=== PATIENT | female | born 1940 | race Caucasian/White ===

== ENCOUNTER 2020-03-02 15:58 | Inpatient (IN) ==
[2020-03-02] MEDS ORDERED: Isovue-370 500 ML BOTTLE IVP ONE (16:45)
[2020-03-02] MEDS: Azithromycin 250 MG TABLET PO SCH (19:55)
[2020-03-03] MEDS: Levothyroxine 25 MCG TABLET PO SCH (05:14)
[2020-03-03] MEDS: *HR* Enoxaparin 40 MG/0.4 ML SYRINGE SQ SCH (05:15)
[2020-03-03 05:25] LABS: Basophils % 0.1 %; Eosinophils % 0.1 %; Hematocrit 35.8 % (35.3-44.9); Hemoglobin 11.2 g/dL (11.5-15.4); Lymphocytes % 11.1 %; Mean Corpuscular HGB Conc 31.3 g/dL (31.6-35.5); Mean Corpuscular Hemoglobin 29.8 pg (28.0-33.3); Mean Corpuscular Volume 95.2 fL (83.0-100.0); Monocytes # 0.8 K/mcL (0.0-1.3); Monocytes % 8.5 %; Neutrophils # 7.4 K/mcL (1.6-8.9); Platelet Count 233 K/mcL (140-400); Red Blood Count 3.76 M/mcL (3.82-4.97); Red Cell Distribution Width 14.7 % (11.5-14.5); Segmented Neutrophils % 79.2 %; White Blood Count 9.4 K/mcL (4.3-11.1)
[2020-03-03 05:38] LABS: Albumin/Globulin Ratio 0.9 (1.1-2.2); Bilirubin,Total 0.2 mg/dL (0.3-1.0); Calcium 8.6 mg/dL (8.6-10.3); Globulin 3.2 g/dL (2.4-3.5); Magnesium 2.1 mg/dL (1.6-2.6); Potassium 4.1 mEq/L (3.5-5.1); Total Protein 6.2 g/dL (6.4-8.9)
[2020-03-03] MEDS: dexAMETHasone 4 MG TABLET PO SCH (08:19)
[2020-03-03] MEDS: Aspirin Enteric Coated 81 MG Tablet PO SCH (08:19)
[2020-03-03] MEDS: allopurinoL 100 MG TABLET PO SCH (08:19)
[2020-03-03] MEDS: Azithromycin 250 MG TABLET PO SCH (08:19)
[2020-03-03] MEDS: Spironolactone 25 MG TABLET PO SCH (08:19)
[2020-03-03] MEDS: Furosemide 20 MG TABLET PO SCH (08:20)
[2020-03-04] MEDS: *HR* Enoxaparin 40 MG/0.4 ML SYRINGE SQ SCH (05:10)
[2020-03-04] MEDS: Levothyroxine 25 MCG TABLET PO SCH (05:11)
[2020-03-04 06:01] LABS: Hematocrit 39.8 % (35.3-44.9); Hemoglobin 12.3 g/dL (11.5-15.4); Mean Corpuscular HGB Conc 30.9 g/dL (31.6-35.5); Mean Corpuscular Hemoglobin 29.7 pg (28.0-33.3); Mean Corpuscular Volume 96.1 fL (83.0-100.0); Mean Platelet Volume 9.9 fL (9.4-12.4); Platelet Count 216 K/mcL (140-400); Red Blood Count 4.14 M/mcL (3.82-4.97); Red Cell Distribution Width 14.8 % (11.5-14.5); White Blood Count 11.2 K/mcL (4.3-11.1)
[2020-03-04 06:21] LABS: Albumin/Globulin Ratio 0.9 (1.1-2.2); Bilirubin,Total 0.2 mg/dL (0.3-1.0); Calcium 8.6 mg/dL (8.6-10.3); Globulin 3.3 g/dL (2.4-3.5); Total Protein 6.3 g/dL (6.4-8.9)
[2020-03-04] MEDS: Spironolactone 25 MG TABLET PO SCH (09:28)
[2020-03-04] MEDS: Azithromycin 250 MG TABLET PO SCH (09:28)
[2020-03-04] MEDS: Aspirin Enteric Coated 81 MG Tablet PO SCH (09:28)
[2020-03-04] MEDS: allopurinoL 100 MG TABLET PO SCH (09:28)
[2020-03-04] MEDS: Furosemide 20 MG TABLET PO SCH (09:28)
[2020-03-04] MEDS: dexAMETHasone 4 MG TABLET PO SCH (09:28)
[2020-03-04 10:01] LABS: Prealbumin 10.6 mg/dL (17.0-34.0)
[2020-03-04 10:09] LABS: Procalcitonin 0.1 ng/mL (0.00-0.15)
[2020-03-05] MEDS: *HR* Enoxaparin 40 MG/0.4 ML SYRINGE SQ SCH (05:18)
[2020-03-05] MEDS: Levothyroxine 25 MCG TABLET PO SCH (05:18)
[2020-03-05 05:46] LABS: Basophils % 0.1 %; Hematocrit 37.7 % (35.3-44.9); Hemoglobin 11.7 g/dL (11.5-15.4); Immature Granulocytes % 0.9 % (0-4); Lymphocytes # 0.8 K/mcL (0.6-4.6); Lymphocytes % 8.8 %; Mean Corpuscular Hemoglobin 29.8 pg (28.0-33.3); Mean Corpuscular Volume 96.2 fL (83.0-100.0); Mean Platelet Volume 9.9 fL (9.4-12.4); Monocytes # 0.5 K/mcL (0.0-1.3); Monocytes % 5.2 %; Neutrophils # 7.9 K/mcL (1.6-8.9); Platelet Count 218 K/mcL (140-400); Red Blood Count 3.92 M/mcL (3.82-4.97); Red Cell Distribution Width 14.8 % (11.5-14.5); White Blood Count 9.3 K/mcL (4.3-11.1)
[2020-03-05 05:56] LABS: BUN/Creatinine Ratio 27 (6-26); Blood Urea Nitrogen 28 mg/dL (8-23); Calcium 8.6 mg/dL (8.6-10.3); Carbon Dioxide 30 mEq/L (23-29); Chloride 107 mEq/L (98-107); Glucose 120 mg/dL (70-105); Osmolality,Calculated 299 (280-300); Potassium 4.8 mEq/L (3.5-5.1); Sodium 141 mEq/L (136-145); eGFR For African Americans > 60 (> 60); eGFR For Non-African Americans 52 (> 60)
[2020-03-05] MEDS: Azithromycin 250 MG TABLET PO SCH (08:07)
[2020-03-05] MEDS: Furosemide 20 MG TABLET PO SCH (08:07)
[2020-03-05] MEDS: allopurinoL 100 MG TABLET PO SCH (08:07)
[2020-03-05] MEDS: Aspirin Enteric Coated 81 MG Tablet PO SCH (08:07)
[2020-03-05] MEDS: Spironolactone 25 MG TABLET PO SCH (08:08)
[2020-03-05] MEDS: dexAMETHasone 4 MG TABLET PO SCH (08:08)
[2020-03-05 12:08] LABS: Estimated Average Glucose 134 mg/dl; Hemoglobin A1C 6.3 %
[2020-03-06] MEDS: Levothyroxine 25 MCG TABLET PO SCH (06:09)
[2020-03-06] MEDS: *HR* Enoxaparin 40 MG/0.4 ML SYRINGE SQ SCH (06:09)
[2020-03-06] MEDS: Spironolactone 25 MG TABLET PO SCH (08:27)
[2020-03-06] MEDS: Furosemide 20 MG TABLET PO SCH (08:27)
[2020-03-06] MEDS: allopurinoL 100 MG TABLET PO SCH (08:27)
[2020-03-06] MEDS: Aspirin Enteric Coated 81 MG Tablet PO SCH (08:27)
[2020-03-06] MEDS: dexAMETHasone 4 MG TABLET PO SCH (08:28)
[2020-03-06] MEDS ORDERED: levoFLOXacin 750 MG/150 ML 750 MG/150 ML BAG IVPB SCH (14:00)
[2020-03-06] MEDS ORDERED: Furosemide 20 MG/2 ML VIAL IVP ONE (14:09)
[2020-03-07] MEDS: *HR* Enoxaparin 40 MG/0.4 ML SYRINGE SQ SCH (05:44)
[2020-03-07] MEDS: Levothyroxine 25 MCG TABLET PO SCH (05:45)
[2020-03-07 06:25] LABS: Hematocrit 36.7 % (35.3-44.9); Hemoglobin 11.5 g/dL (11.5-15.4); Mean Corpuscular HGB Conc 31.3 g/dL (31.6-35.5); Mean Corpuscular Hemoglobin 29.5 pg (28.0-33.3); Mean Corpuscular Volume 94.1 fL (83.0-100.0); Mean Platelet Volume 10.9 fL (9.4-12.4); Platelet Count 207 K/mcL (140-400); Red Cell Distribution Width 14.6 % (11.5-14.5); White Blood Count 10.8 K/mcL (4.3-11.1)
[2020-03-07 06:56] LABS: Alanine Aminotransferase 31 Units/L (7-52); Albumin/Globulin Ratio 0.9 (1.1-2.2); Alkaline Phosphatase 48 Units/L (34-104); Aspartate Amino Transferase 30 Units/L (13-39); BUN/Creatinine Ratio 24 (6-26); Bilirubin,Total 0.3 mg/dL (0.3-1.0); Blood Urea Nitrogen 25 mg/dL (8-23); Calcium 8.5 mg/dL (8.6-10.3); Carbon Dioxide 28 mEq/L (23-29); Chloride 103 mEq/L (98-107); Globulin 3.4 g/dL (2.4-3.5); Glucose 98 mg/dL (70-105); Magnesium 2.1 mg/dL (1.6-2.6); Osmolality,Calculated 292 (280-300); Potassium 3.5 mEq/L (3.5-5.1); Sodium 139 mEq/L (136-145); Total Protein 6.4 g/dL (6.4-8.9); eGFR For African Americans > 60 (> 60); eGFR For Non-African Americans 51 (> 60)
[2020-03-07] MEDS: Spironolactone 25 MG TABLET PO SCH (08:32)
[2020-03-07] MEDS: allopurinoL 100 MG TABLET PO SCH (08:32)
[2020-03-07] MEDS: Aspirin Enteric Coated 81 MG Tablet PO SCH (08:33)
[2020-03-07] MEDS: dexAMETHasone 4 MG TABLET PO SCH (08:33)
[2020-03-07] MEDS: Furosemide 20 MG TABLET PO SCH (08:33)
[2020-03-07] MEDS ORDERED: levoFLOXacin 750 MG/150 ML 750 MG/150 ML BAG IVPB SCH (14:00)
[2020-03-07 14:41] LABS: Ferritin 73 ng/mL (10-120)
[2020-03-07 15:13] LABS: C-Reactive Protein 105 mg/L (Less than 10)
[2020-03-07] MEDS: Nystatin POWDER 30 GM BOTTLE TP SCH (22:12)
[2020-03-08] MEDS: *HR* Enoxaparin 40 MG/0.4 ML SYRINGE SQ SCH (06:00)
[2020-03-08] MEDS: Levothyroxine 25 MCG TABLET PO SCH (06:00)
[2020-03-08] MEDS: dexAMETHasone 4 MG TABLET PO SCH (09:31)
[2020-03-08] MEDS: allopurinoL 100 MG TABLET PO SCH (09:31)
[2020-03-08] MEDS: Furosemide 20 MG TABLET PO SCH (09:31)
[2020-03-08] MEDS: Spironolactone 25 MG TABLET PO SCH (09:31)
[2020-03-08] MEDS: Aspirin Enteric Coated 81 MG Tablet PO SCH (09:32)
[2020-03-08] MEDS: Nystatin POWDER 30 GM BOTTLE TP SCH ×2 (09:32→20:45)
[2020-03-08] MEDS: levoFLOXacin 750 MG TABLET PO SCH (09:32)
[2020-03-08] MEDS ORDERED: Sennosides 8.6 MG TABLET PO PRN (15:57)
[2020-03-09] MEDS: Levothyroxine 25 MCG TABLET PO SCH (05:38)
[2020-03-09] MEDS: *HR* Enoxaparin 40 MG/0.4 ML SYRINGE SQ SCH (05:39)
[2020-03-09 06:10] LABS: Basophils % 0.2 %; Eosinophils % 0.1 %; Hemoglobin 11.3 g/dL (11.5-15.4); Immature Granulocytes % 3.1 % (0-4); Lymphocytes # 0.8 K/mcL (0.6-4.6); Lymphocytes % 9.7 %; Mean Corpuscular HGB Conc 31.4 g/dL (31.6-35.5); Mean Corpuscular Hemoglobin 29.8 pg (28.0-33.3); Mean Platelet Volume 9.7 fL (9.4-12.4); Monocytes # 0.8 K/mcL (0.0-1.3); Monocytes % 9.5 %; Neutrophils # 6.6 K/mcL (1.6-8.9); Platelet Count 253 K/mcL (140-400); Red Blood Count 3.79 M/mcL (3.82-4.97); Red Cell Distribution Width 14.5 % (11.5-14.5); Segmented Neutrophils % 77.4 %; White Blood Count 8.5 K/mcL (4.3-11.1)
[2020-03-09 06:58] LABS: BUN/Creatinine Ratio 25 (6-26); Blood Urea Nitrogen 26 mg/dL (8-23); Calcium 8.6 mg/dL (8.6-10.3); Carbon Dioxide 30 mEq/L (23-29); Chloride 106 mEq/L (98-107); Glucose 110 mg/dL (70-105); Osmolality,Calculated 299 (280-300); Sodium 142 mEq/L (136-145); eGFR For African Americans > 60 (> 60); eGFR For Non-African Americans 51 (> 60)
[2020-03-09] MEDS: Nystatin POWDER 30 GM BOTTLE TP SCH ×2 (10:00→20:52)
[2020-03-09] MEDS: Aspirin Enteric Coated 81 MG Tablet PO SCH (10:09)
[2020-03-09] MEDS: dexAMETHasone 4 MG TABLET PO SCH (10:09)
[2020-03-09] MEDS: Furosemide 20 MG TABLET PO SCH (10:09)
[2020-03-09] MEDS: levoFLOXacin 750 MG TABLET PO SCH (10:09)
[2020-03-09] MEDS: Spironolactone 25 MG TABLET PO SCH (10:09)
[2020-03-09] MEDS: allopurinoL 100 MG TABLET PO SCH (10:09)
[2020-03-09 12:04] LABS: C-Reactive Protein 44 mg/L (Less than 10)
[2020-03-10] MEDS: *HR* Enoxaparin 40 MG/0.4 ML SYRINGE SQ SCH (05:20)
[2020-03-10] MEDS: Levothyroxine 25 MCG TABLET PO SCH (05:20)
[2020-03-10] MEDS: Furosemide 20 MG TABLET PO SCH (10:30)
[2020-03-10] MEDS: allopurinoL 100 MG TABLET PO SCH (10:30)
[2020-03-10] MEDS: Aspirin Enteric Coated 81 MG Tablet PO SCH (10:30)
[2020-03-10] MEDS: dexAMETHasone 4 MG TABLET PO SCH (10:30)
[2020-03-10] MEDS: levoFLOXacin 750 MG TABLET PO SCH (10:30)
[2020-03-10] MEDS: Spironolactone 25 MG TABLET PO SCH (10:33)
[2020-03-10] MEDS: Nystatin POWDER 30 GM BOTTLE TP SCH ×2 (10:49→21:09)
[2020-03-10] MEDS: Piperacillin/Tazobactam 3.375 GM in 0.9 % Sodium Chloride Mini Bag 100 ML IVPB SCH ×2 (17:14→23:49)
[2020-03-11] MEDS: Levothyroxine 25 MCG TABLET PO SCH (05:18)
[2020-03-11] MEDS: *HR* Enoxaparin 40 MG/0.4 ML SYRINGE SQ SCH (05:18)
[2020-03-11 05:35] LABS: Basophils % 0.3 %; Eosinophils % 0.1 %; Hematocrit 34.5 % (35.3-44.9); Hemoglobin 10.5 g/dL (11.5-15.4); Immature Granulocytes % 4.7 % (0-4); Lymphocytes # 0.9 K/mcL (0.6-4.6); Lymphocytes % 8.5 %; Mean Corpuscular HGB Conc 30.4 g/dL (31.6-35.5); Mean Corpuscular Hemoglobin 29.2 pg (28.0-33.3); Mean Corpuscular Volume 95.8 fL (83.0-100.0); Mean Platelet Volume 9.6 fL (9.4-12.4); Monocytes # 0.8 K/mcL (0.0-1.3); Monocytes % 7.1 %; Neutrophils # 8.8 K/mcL (1.6-8.9); Platelet Count 268 K/mcL (140-400); Red Cell Distribution Width 14.7 % (11.5-14.5); Segmented Neutrophils % 79.3 %; White Blood Count 11.1 K/mcL (4.3-11.1)
[2020-03-11 05:50] LABS: Calcium 8.8 mg/dL (8.6-10.3); Potassium 3.9 mEq/L (3.5-5.1)
[2020-03-11] MEDS: Furosemide 20 MG TABLET PO SCH (08:49)
[2020-03-11] MEDS: Aspirin Enteric Coated 81 MG Tablet PO SCH (08:49)
[2020-03-11] MEDS: allopurinoL 100 MG TABLET PO SCH (08:50)
[2020-03-11] MEDS: Spironolactone 25 MG TABLET PO SCH (08:51)
[2020-03-11] MEDS: levoFLOXacin 750 MG TABLET PO SCH (08:51)
[2020-03-11] MEDS: Piperacillin/Tazobactam 3.375 GM in 0.9 % Sodium Chloride Mini Bag 100 ML IVPB SCH ×2 (08:51→16:33)
[2020-03-11] MEDS: Dexamethasone 4 MG/ML VIAL IVP SCH (08:52)
[2020-03-11] MEDS: Nystatin POWDER 30 GM BOTTLE TP SCH ×2 (08:53→21:50)
[2020-03-12] MEDS: Piperacillin/Tazobactam 3.375 GM in 0.9 % Sodium Chloride Mini Bag 100 ML IVPB SCH ×4 (00:09→23:35)
[2020-03-12] MEDS: *HR* Enoxaparin 40 MG/0.4 ML SYRINGE SQ SCH (06:02)
[2020-03-12] MEDS: Levothyroxine 25 MCG TABLET PO SCH (06:02)
[2020-03-12] MEDS: allopurinoL 100 MG TABLET PO SCH (09:14)
[2020-03-12] MEDS: Furosemide 20 MG TABLET PO SCH (09:14)
[2020-03-12] MEDS: Aspirin Enteric Coated 81 MG Tablet PO SCH (09:14)
[2020-03-12] MEDS: Dexamethasone 4 MG/ML VIAL IVP SCH (09:14)
[2020-03-12] MEDS: levoFLOXacin 750 MG TABLET PO SCH (09:14)
[2020-03-12] MEDS: Spironolactone 25 MG TABLET PO SCH (09:14)
[2020-03-12] MEDS: Nystatin POWDER 30 GM BOTTLE TP SCH ×2 (09:18→21:16)
[2020-03-13 06:30] LABS: Basophils # 0.1 K/mcL (0.0-0.2); Basophils % 0.5 %; Eosinophils # 0.1 K/mcL (0.0-0.6); Eosinophils % 0.8 %; Hematocrit 34.8 % (35.3-44.9); Immature Granulocytes % 5.5 % (0-4); Lymphocytes # 1.2 K/mcL (0.6-4.6); Lymphocytes % 9.8 %; Mean Corpuscular HGB Conc 31.6 g/dL (31.6-35.5); Mean Corpuscular Hemoglobin 30.1 pg (28.0-33.3); Mean Corpuscular Volume 95.3 fL (83.0-100.0); Mean Platelet Volume 9.6 fL (9.4-12.4); Monocytes % 8.2 %; Platelet Count 255 K/mcL (140-400); Red Blood Count 3.65 M/mcL (3.82-4.97); Red Cell Distribution Width 14.8 % (11.5-14.5); Segmented Neutrophils % 75.2 %
[2020-03-13] MEDS: *HR* Enoxaparin 40 MG/0.4 ML SYRINGE SQ SCH (06:36)
[2020-03-13] MEDS: Levothyroxine 25 MCG TABLET PO SCH (06:36)
[2020-03-13 06:50] LABS: Calcium 9.2 mg/dL (8.6-10.3); Potassium 4.2 mEq/L (3.5-5.1)
[2020-03-13 07:04] LABS: Platelet Estimate Normal (Normal)
[2020-03-13] MEDS: allopurinoL 100 MG TABLET PO SCH (09:25)
[2020-03-13] MEDS: Piperacillin/Tazobactam 3.375 GM in 0.9 % Sodium Chloride Mini Bag 100 ML IVPB SCH ×2 (09:25→15:41)
[2020-03-13] MEDS: Aspirin Enteric Coated 81 MG Tablet PO SCH (09:25)
[2020-03-13] MEDS: levoFLOXacin 750 MG TABLET PO SCH (09:25)
[2020-03-13] MEDS: Spironolactone 25 MG TABLET PO SCH (09:25)
[2020-03-13] MEDS: Nystatin POWDER 30 GM BOTTLE TP SCH ×2 (09:26→22:05)
[2020-03-13] MEDS: Furosemide 20 MG TABLET PO SCH (09:26)
[2020-03-13] MEDS: Dexamethasone 4 MG/ML VIAL IVP SCH (09:26)
[2020-03-13] MEDS ORDERED: *HR* LORazepam 0.5 MG TABLET PO PRN (13:12)
[2020-03-14] MEDS: Piperacillin/Tazobactam 3.375 GM in 0.9 % Sodium Chloride Mini Bag 100 ML IVPB SCH ×3 (00:04→17:05)
[2020-03-14] MEDS: Levothyroxine 25 MCG TABLET PO SCH (05:18)
[2020-03-14] MEDS: *HR* Enoxaparin 40 MG/0.4 ML SYRINGE SQ SCH (05:18)
[2020-03-14] MEDS: Aspirin Enteric Coated 81 MG Tablet PO SCH (09:50)
[2020-03-14] MEDS: Spironolactone 25 MG TABLET PO SCH (09:50)
[2020-03-14] MEDS: allopurinoL 100 MG TABLET PO SCH (09:50)
[2020-03-14] MEDS: Furosemide 20 MG TABLET PO SCH (09:50)
[2020-03-14] MEDS: Dexamethasone 4 MG/ML VIAL IVP SCH (09:50)
[2020-03-14] MEDS: Nystatin POWDER 30 GM BOTTLE TP SCH ×2 (09:51→21:57)
[2020-03-14] MEDS: Acetaminophen 325 MG TABLET PO PRN (13:32)
[2020-03-15] MEDS: *HR* Enoxaparin 40 MG/0.4 ML SYRINGE SQ SCH (05:48)
[2020-03-15] MEDS: Levothyroxine 25 MCG TABLET PO SCH (05:49)
[2020-03-15 06:11] LABS: Hematocrit 37.7 % (35.3-44.9); Hemoglobin 11.6 g/dL (11.5-15.4); Mean Corpuscular HGB Conc 30.8 g/dL (31.6-35.5); Mean Corpuscular Volume 97.4 fL (83.0-100.0); Mean Platelet Volume 9.8 fL (9.4-12.4); Platelet Count 273 K/mcL (140-400); Red Blood Count 3.87 M/mcL (3.82-4.97); White Blood Count 14.3 K/mcL (4.3-11.1)
[2020-03-15 06:26] LABS: Albumin 3.2 g/dL (3.5-5.7); Albumin/Globulin Ratio 0.9 (1.1-2.2); Bilirubin,Total 0.5 mg/dL (0.3-1.0); Calcium 9.1 mg/dL (8.6-10.3); Globulin 3.5 g/dL (2.4-3.5); Magnesium 2.4 mg/dL (1.6-2.6); Potassium 3.2 mEq/L (3.5-5.1); Total Protein 6.7 g/dL (6.4-8.9)
[2020-03-15] MEDS: Piperacillin/Tazobactam 3.375 GM in 0.9 % Sodium Chloride Mini Bag 100 ML IVPB SCH ×4 (10:15→23:47)
[2020-03-15] MEDS: Furosemide 20 MG TABLET PO SCH (10:17)
[2020-03-15] MEDS: Aspirin Enteric Coated 81 MG Tablet PO SCH (10:17)
[2020-03-15] MEDS: Spironolactone 25 MG TABLET PO SCH (10:17)
[2020-03-15] MEDS: allopurinoL 100 MG TABLET PO SCH (10:17)
[2020-03-15] MEDS: Dexamethasone 4 MG/ML VIAL IVP SCH (10:17)
[2020-03-15] MEDS: Acetaminophen 325 MG TABLET PO PRN (10:17)
[2020-03-15] MEDS: Nystatin POWDER 30 GM BOTTLE TP SCH ×2 (10:18→21:32)
[2020-03-16] MEDS: *HR* Enoxaparin 40 MG/0.4 ML SYRINGE SQ SCH (05:05)
[2020-03-16] MEDS: Levothyroxine 25 MCG TABLET PO SCH (05:05)
[2020-03-16] MEDS: Piperacillin/Tazobactam 3.375 GM in 0.9 % Sodium Chloride Mini Bag 100 ML IVPB SCH ×2 (09:20→16:50)
[2020-03-16] MEDS: Aspirin Enteric Coated 81 MG Tablet PO SCH (09:22)
[2020-03-16] MEDS: allopurinoL 100 MG TABLET PO SCH (09:22)
[2020-03-16] MEDS: Furosemide 20 MG TABLET PO SCH (09:23)
[2020-03-16] MEDS: Spironolactone 25 MG TABLET PO SCH (09:23)
[2020-03-16] MEDS: Dexamethasone 4 MG/ML VIAL IVP SCH (09:35)
[2020-03-16] MEDS: Nystatin POWDER 30 GM BOTTLE TP SCH ×2 (09:37→21:25)
[2020-03-17] MEDS: Piperacillin/Tazobactam 3.375 GM in 0.9 % Sodium Chloride Mini Bag 100 ML IVPB SCH ×3 (00:19→16:43)
[2020-03-17] MEDS: *HR* Enoxaparin 40 MG/0.4 ML SYRINGE SQ SCH (05:53)
[2020-03-17] MEDS: Levothyroxine 25 MCG TABLET PO SCH (05:53)
[2020-03-17 05:59] LABS: Hemoglobin 10.4 g/dL (11.5-15.4); Mean Corpuscular HGB Conc 30.6 g/dL (31.6-35.5); Mean Platelet Volume 9.8 fL (9.4-12.4); Platelet Count 232 K/mcL (140-400); Red Blood Count 3.47 M/mcL (3.82-4.97); Red Cell Distribution Width 15.6 % (11.5-14.5); White Blood Count 14.3 K/mcL (4.3-11.1)
[2020-03-17 06:15] LABS: Albumin 3.1 g/dL (3.5-5.7); Bilirubin,Total 0.5 mg/dL (0.3-1.0); Calcium 9.1 mg/dL (8.6-10.3); Globulin 3.1 g/dL (2.4-3.5); Magnesium 2.3 mg/dL (1.6-2.6); Potassium 4.1 mEq/L (3.5-5.1); Total Protein 6.2 g/dL (6.4-8.9)
[2020-03-17] MEDS: Aspirin Enteric Coated 81 MG Tablet PO SCH (08:52)
[2020-03-17] MEDS: Spironolactone 25 MG TABLET PO SCH (08:53)
[2020-03-17] MEDS: allopurinoL 100 MG TABLET PO SCH (08:53)
[2020-03-17] MEDS: Furosemide 20 MG TABLET PO SCH (08:53)
[2020-03-17] MEDS: Nystatin POWDER 30 GM BOTTLE TP SCH ×2 (08:54→20:44)
[2020-03-17] MEDS: Acetaminophen 325 MG TABLET PO PRN (12:13)
[2020-03-18] MEDS: Levothyroxine 25 MCG TABLET PO SCH (06:05)
[2020-03-18] MEDS: *HR* Enoxaparin 40 MG/0.4 ML SYRINGE SQ SCH (06:05)
[2020-03-18] MEDS: Acetaminophen 325 MG TABLET PO PRN (09:37)
[2020-03-18] MEDS: Aspirin Enteric Coated 81 MG Tablet PO SCH (09:37)
[2020-03-18] MEDS: allopurinoL 100 MG TABLET PO SCH (09:38)
[2020-03-18] MEDS: Furosemide 20 MG TABLET PO SCH (09:38)
[2020-03-18] MEDS: Spironolactone 25 MG TABLET PO SCH (09:38)
[2020-03-18] MEDS: Nystatin POWDER 30 GM BOTTLE TP SCH ×2 (11:09→20:38)
[2020-03-19] MEDS: *HR* Enoxaparin 40 MG/0.4 ML SYRINGE SQ SCH (05:08)
[2020-03-19] MEDS: Levothyroxine 25 MCG TABLET PO SCH (05:08)
[2020-03-19 06:23] LABS: Hematocrit 34.8 % (35.3-44.9); Hemoglobin 10.5 g/dL (11.5-15.4); Mean Corpuscular HGB Conc 30.2 g/dL (31.6-35.5); Mean Corpuscular Hemoglobin 29.8 pg (28.0-33.3); Mean Corpuscular Volume 98.9 fL (83.0-100.0); Mean Platelet Volume 10.2 fL (9.4-12.4); Platelet Count 232 K/mcL (140-400); Red Blood Count 3.52 M/mcL (3.82-4.97); Red Cell Distribution Width 15.9 % (11.5-14.5); White Blood Count 11.5 K/mcL (4.3-11.1)
[2020-03-19 06:42] LABS: Albumin 3.2 g/dL (3.5-5.7); Albumin/Globulin Ratio 0.9 (1.1-2.2); Bilirubin,Total 0.5 mg/dL (0.3-1.0); Calcium 9.1 mg/dL (8.6-10.3); Globulin 3.4 g/dL (2.4-3.5); Magnesium 2.4 mg/dL (1.6-2.6); Potassium 3.9 mEq/L (3.5-5.1); Total Protein 6.6 g/dL (6.4-8.9)
[2020-03-19] MEDS: Spironolactone 25 MG TABLET PO SCH (09:23)
[2020-03-19] MEDS: Furosemide 20 MG TABLET PO SCH (09:23)
[2020-03-19] MEDS: allopurinoL 100 MG TABLET PO SCH (09:23)
[2020-03-19] MEDS: Acetaminophen 325 MG TABLET PO PRN (09:23)
[2020-03-19] MEDS: Aspirin Enteric Coated 81 MG Tablet PO SCH (09:24)
[2020-03-19] MEDS: Nystatin POWDER 30 GM BOTTLE TP SCH ×2 (09:27→19:54)
[2020-03-20] MEDS: Levothyroxine 25 MCG TABLET PO SCH (05:04)
[2020-03-20] MEDS: *HR* Enoxaparin 40 MG/0.4 ML SYRINGE SQ SCH (05:04)
[2020-03-20] MEDS: Furosemide 20 MG TABLET PO SCH (09:35)
[2020-03-20] MEDS: Nystatin POWDER 30 GM BOTTLE TP SCH ×2 (09:36→20:52)
[2020-03-20] MEDS: Aspirin Enteric Coated 81 MG Tablet PO SCH (09:36)
[2020-03-20] MEDS: Spironolactone 25 MG TABLET PO SCH (09:36)
[2020-03-20] MEDS: allopurinoL 100 MG TABLET PO SCH (09:36)
[2020-03-21] MEDS: *HR* Enoxaparin 40 MG/0.4 ML SYRINGE SQ SCH (05:18)
[2020-03-21] MEDS: Levothyroxine 25 MCG TABLET PO SCH (05:18)
[2020-03-21] MEDS: Furosemide 20 MG TABLET PO SCH (09:26)
[2020-03-21] MEDS: Spironolactone 25 MG TABLET PO SCH (09:26)
[2020-03-21] MEDS: allopurinoL 100 MG TABLET PO SCH (09:26)
[2020-03-21] MEDS: Aspirin Enteric Coated 81 MG Tablet PO SCH (09:26)
[2020-03-21] MEDS: Nystatin POWDER 30 GM BOTTLE TP SCH ×2 (09:28→19:48)
[2020-03-22] MEDS: Levothyroxine 25 MCG TABLET PO SCH (05:28)
[2020-03-22] MEDS: *HR* Enoxaparin 40 MG/0.4 ML SYRINGE SQ SCH (05:28)
[2020-03-22] MEDS: Nystatin POWDER 30 GM BOTTLE TP SCH ×2 (09:30→21:35)
[2020-03-22] MEDS: Spironolactone 25 MG TABLET PO SCH (09:30)
[2020-03-22] MEDS: allopurinoL 100 MG TABLET PO SCH (09:30)
[2020-03-22] MEDS: Aspirin Enteric Coated 81 MG Tablet PO SCH (09:30)
[2020-03-22] MEDS: Furosemide 20 MG TABLET PO SCH (09:30)
[2020-03-22] MEDS: Acetaminophen 325 MG TABLET PO PRN (09:32)
[2020-03-23] MEDS: Levothyroxine 25 MCG TABLET PO SCH (05:12)
[2020-03-23] MEDS: *HR* Enoxaparin 40 MG/0.4 ML SYRINGE SQ SCH (05:12)
[2020-03-23] MEDS: Aspirin Enteric Coated 81 MG Tablet PO SCH (08:08)
[2020-03-23] MEDS: allopurinoL 100 MG TABLET PO SCH (08:08)
[2020-03-23] MEDS: Furosemide 20 MG TABLET PO SCH (08:08)
[2020-03-23] MEDS: Spironolactone 25 MG TABLET PO SCH (08:08)
[2020-03-23] MEDS: Nystatin POWDER 30 GM BOTTLE TP SCH ×2 (08:08→21:15)
[2020-03-23] MEDS: Acetaminophen 325 MG TABLET PO PRN ×2 (08:10→23:55)
[2020-03-24] MEDS: *HR* Enoxaparin 40 MG/0.4 ML SYRINGE SQ SCH (05:24)
[2020-03-24] MEDS: Levothyroxine 25 MCG TABLET PO SCH (05:24)
[2020-03-24 06:09] LABS: Hematocrit 35.9 % (35.3-44.9); Hemoglobin 10.9 g/dL (11.5-15.4); Mean Corpuscular HGB Conc 30.4 g/dL (31.6-35.5); Mean Corpuscular Hemoglobin 30.1 pg (28.0-33.3); Mean Corpuscular Volume 99.2 fL (83.0-100.0); Mean Platelet Volume 9.9 fL (9.4-12.4); Platelet Count 213 K/mcL (140-400); Red Blood Count 3.62 M/mcL (3.82-4.97); Red Cell Distribution Width 16.7 % (11.5-14.5); White Blood Count 8.2 K/mcL (4.3-11.1)
[2020-03-24 06:25] LABS: Alanine Aminotransferase 17 Units/L (7-52); Albumin 2.9 g/dL (3.5-5.7); Albumin/Globulin Ratio 0.9 (1.1-2.2); Alkaline Phosphatase 82 Units/L (34-104); Aspartate Amino Transferase 19 Units/L (13-39); BUN/Creatinine Ratio 24 (6-26); Bilirubin,Total 0.3 mg/dL (0.3-1.0); Blood Urea Nitrogen 23 mg/dL (8-23); Calcium 8.7 mg/dL (8.6-10.3); Carbon Dioxide 30 mEq/L (23-29); Chloride 105 mEq/L (98-107); Globulin 3.2 g/dL (2.4-3.5); Glucose 102 mg/dL (70-105); Magnesium 2.2 mg/dL (1.6-2.6); Osmolality,Calculated 292 (280-300); Potassium 4.1 mEq/L (3.5-5.1); Sodium 139 mEq/L (136-145); Total Protein 6.1 g/dL (6.4-8.9); eGFR For African Americans > 60 (> 60); eGFR For Non-African Americans 55 (> 60)
[2020-03-24] MEDS: Aspirin Enteric Coated 81 MG Tablet PO SCH (08:51)
[2020-03-24] MEDS: Furosemide 20 MG TABLET PO SCH (08:51)
[2020-03-24] MEDS: allopurinoL 100 MG TABLET PO SCH (08:51)
[2020-03-24] MEDS: Acetaminophen 325 MG TABLET PO PRN (08:51)
[2020-03-24] MEDS: Spironolactone 25 MG TABLET PO SCH (08:51)
[2020-03-24] MEDS: Nystatin POWDER 30 GM BOTTLE TP SCH ×2 (08:51→20:55)
[2020-03-24 14:45] LABS: C-Reactive Protein 30 mg/L (Less than 10)
[2020-03-24 14:51] LABS: Ferritin 57 ng/mL (10-120)
[2020-03-25] MEDS: Levothyroxine 25 MCG TABLET PO SCH (05:38)
[2020-03-25] MEDS: *HR* Enoxaparin 40 MG/0.4 ML SYRINGE SQ SCH (05:38)
[2020-03-25] MEDS: Furosemide 20 MG TABLET PO SCH (08:18)
[2020-03-25] MEDS: allopurinoL 100 MG TABLET PO SCH (08:18)
[2020-03-25] MEDS: Aspirin Enteric Coated 81 MG Tablet PO SCH (08:18)
[2020-03-25] MEDS: Spironolactone 25 MG TABLET PO SCH (08:19)
[2020-03-25] MEDS: Acetaminophen 325 MG TABLET PO PRN (08:19)
[2020-03-25] MEDS: Nystatin POWDER 30 GM BOTTLE TP SCH ×2 (08:19→19:53)
[2020-03-26] MEDS: *HR* Enoxaparin 40 MG/0.4 ML SYRINGE SQ SCH (05:31)
[2020-03-26] MEDS: Levothyroxine 25 MCG TABLET PO SCH (05:31)
[2020-03-26] MEDS: allopurinoL 100 MG TABLET PO SCH (09:19)
[2020-03-26] MEDS: Aspirin Enteric Coated 81 MG Tablet PO SCH (09:19)
[2020-03-26] MEDS: Acetaminophen 325 MG TABLET PO PRN (09:19)
[2020-03-26] MEDS: Furosemide 20 MG TABLET PO SCH (09:19)
[2020-03-26] MEDS: Nystatin POWDER 30 GM BOTTLE TP SCH (09:20)
[2020-03-26] MEDS: Spironolactone 25 MG TABLET PO SCH (09:20)
[2020-03-26 09:29] VITALS: BP 139/79
== END 2020-03-26 11:37 | disposition home health service (06) | DRG 177 ==
LOC: INPGRE 16:34
PROVIDERS: ADMIT Family Medicine; ATTEND Family Medicine